=== PATIENT | female | born 1960 | race Native Hawaiian/Other Pacific Islander ===

== ENCOUNTER 2017-09-12 15:59 | Emergency (ER) | payer BC, OTHER ==
[~2017-09-12] VITALS: Ht 162.6 cm; Wt 72.0 kg
[~2017-09-12 15:59] MED LIST: ASPI81TA11 PO; IBUP600T26 PO; PERC5TAB12 PO; ROSU40 PO
[2017-09-12 16:36] VITALS: BP 198/102; PULSE 73; RESP 16; TEMP 98.3; O2SAT 96
--- NOTE | 2017-09-12 18:00 | PD ---
HPI Chief Complaint: Injury Time Seen by Provider: 17:57 Travel History International Travel<30 days: No Contact w/Intl Traveler<30days: No Traveled to known affect area: No History of Present Illness HPI Comes in complaining of left index finger pain near the base of the first phalanx. Patient states she was stirring rice when he somehow twisted her finger causing the pain. Patient applied ice but states this only made it cold. Denies doing anything else for this. Pain is worse with palpation and certain movement. Describes pain as a sharp stabbing pain that radiates proximally. Denies any numbness or tingling. Denies anything making it better. Patient reports history of white coat hypertension but does not take medication for it. Patient states she does not want any pain medication as she does not like taking medication. PFSH Past Medical History High Cholesterol: Yes Diminished Hearing: No Hypertension: Yes (white coat) Social History Alcohol Use: No Tobacco Use: Yes (1 PPD) Substance Use: No Allergies-Medications (Allergen,Severity, Reaction): Coded Allergies: No Known Allergies (Verified Adverse Reaction, Unknown, 09/12/17) Reported Meds & Prescriptions Reported Meds & Active Scripts Active Reported Aspirin 81 Mg Chew 81 Mg CHEW HS Crestor (Rosuvastatin Calcium) 20 Mg Tab 20 Mg PO HS Review of Systems General / Constitutional: No: Fever Eyes: No: Visual changes HENT: No: Headaches Cardiovascular: No: Chest Pain or Discomfort Respiratory: No: Shortness of Breath Gastrointestinal: No: Abdominal Pain Genitourinary: No: Dysuria Musculoskeletal: Positive: Pain Skin: No Rash Neurologic: No: Weakness Psychiatric: No: Depression Endocrine: No: Polydipsia Hematologic/Lymphatic: No: Easy Bruising Physical Exam Narrative GENERAL: Well-developed, overly nourished, in no acute distress, and non-ill appearing. SKIN: Focused skin assessment warm and dry. HEAD: Atraumatic. Normocephalic. EYES: Pupils equal and round. EOMI. No scleral icterus. No injection or drainage. ENT: No nasal bleeding or discharge. Mucous membranes pink and moist. NECK: Trachea midline. Supple. No nuclear rigidity. CARDIOVASCULAR: Capillary refill less than 2 seconds. RESPIRATORY: No accessory muscle use. No respiratory distress. MUSCULOSKELETAL: No obvious deformities. No clubbing. No cyanosis. No edema. Decreased range of motion left finger second digit secondary to pain and swelling. Patient reports tenderness to palpation of the proximal phalanx of the left hand second digit. There is ecchymosis and soft tissue swelling noted. There is no crepitus. Patient has decreased range of motion of flexion secondary to the pain. Has full range of motion with extension, abduction, adduction, and opposition. Neurovascularly intact. NEUROLOGICAL: Awake and alert. No obvious cranial nerve deficits. Motor grossly within normal limits. Normal speech. PSYCHIATRIC: Appropriate mood and affect; insight and judgment normal. Data Data Last Documented VS Vital Signs Date Time Temp Pulse Resp B/P (MAP) Pulse Ox O2 Delivery O2 Flow Rate FiO2 09/12/17 19:04 09/12/17 16:36 98.3 73 16 96 Orders Orders Finger ([id number]) (09/12/17 ) Ed Discharge Order (09/12/17 18:41) Splint Or Brace Apply/Monitor (09/12/17 18:41) MDM Medical Decision Making Medical Screen Exam Complete: Yes Emergency Medical Condition: Yes Interpretation(s) Last Impressions Finger X-Ray 09/12/17 0000 Signed Impressions: Service Date/Time: September 18:00 - CONCLUSION: Suspected nondisplaced volar plate fracture of the pointer finger proximal interphalangeal joint. Tucker Ward MD Differential Diagnosis Fracture, sprain, contusion, dislocation Narrative Course The patient sustained a fracture. The distal extremity appears neurovascularly intact, without evidence of neurovascular injury nor compartment syndrome. Tendon exam also was intact. The effected limb was splinted. The patient was discharged with fracture and splint care instructions and given warnings for vascular compromise. The patient is to follow up with hand surgeon. The patient agrees with plan. The patient has a prior history of reported whitecoat hypertension. The patient has no symptoms as well. The patient denied headache, changes in vision, nausea , vomiting, dizziness, weakness or loss of sensation. The patient denied and chest, back or abdominal pain. The patient also denied any shortness of breath, dyspnea on exertion, orthopnea or PND. The patient denies any edema to extremities. The patients blood pressures at discharge were at an acceptable level. I discussed with the patient to follow up with a primary care physician for continued outpatient evaluation and potential starting of blood pressure medication at that time found to be warranted. Return warnings were given to the patient and the patient agreed with plan of care. Patient states she does not want any medication to go home. Patient in no obvious distress upon re-evaluation. All pertinentRadiology result (s) discussed with patient/family. Any questions/concerns in reference to patient diagnosis/condition discussed and clarified prior to patient's discharge. Reinforced sheer importance of close follow up with patient's primary physician or primary care clinic and hand surgeon. Instructed patient to return to ED immediately, if symptoms return/worsen. Patient showed understanding of above instructions. Further instructions and recommendations were detailed in discharge paperwork. Patient ambulated without difficulty out of ED at discharge. Diagnosis Primary Impression: Finger fracture, left Qualified Codes: S62.641A - Nondisplaced fracture of proximal phalanx of left index finger, initial encounter for closed fracture Referrals: Ric Lazcano MD 1 week Patient Instructions: Finger Fracture (ED), General Instructions, Splint Care ( ED) Additional Instructions: Follow-up with hand surgeon next week for reevaluation of her finger fracture. Follow-up with your primary care physician regarding elevated blood pressure noted here today. Use [id number] Tylenol and/or ibuprofen as needed for pain. Follow instructions on the packaging. Apply ice to affected area) as needed for pain and swelling. Elevated affected finger to decrease pain and swelling. Return to the emergency department if symptoms get worse. Disposition: 01 DISCHARGE HOME Condition: Stable [place] Sep 12, 2017 18:00
[2017-09-12] MEDS ORDERED: ROSU20 PO (18:02)
[2017-09-12] MEDS ORDERED: ASPI-516 CHEW (18:02)
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
[2017-09-12 19:03] VITALS: BP 184/96
== END 2017-09-12 19:14 | disposition home or self-care (01) ==
LOC: PHED 15:59 → PHEFT 19:14
DX: S62.641A Nondisplaced fracture of proximal phalanx of left index finger, initial encounter for closed fracture (principal); E78.00 Pure hypercholesterolemia, unspecified; F17.200 Nicotine dependence, unspecified, uncomplicated; X50.1XXA Overexertion from prolonged static or awkward postures, initial encounter; Y93.G3 Activity, cooking and baking
CPT/HCPCS: 29130; 73140

== ENCOUNTER 2017-12-28 21:12 | Emergency (ER) | payer OTHER, BC ==
[~2017-12-28] VITALS: Ht 162.6 cm; Wt 72.8 kg
[~2017-12-28 21:12] MED LIST changes: +ASPI-516 CHEW; -ASPI81TA11 PO; -IBUP600T26 PO; -PERC5TAB12 PO; +ROSU20 PO; -ROSU40 PO
[2017-12-28 21:13] VITALS: BP 211/85; PULSE 72; RESP 18; TEMP 98.1; O2SAT 97
[2017-12-28 21:47] VITALS: BP 175/82; PULSE 61; RESP 20; O2SAT 98
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
[2017-12-28] MEDS ORDERED: MORPHINE SULFATE 4 MG/ML INJ IV PUSH ONE (23:00)
[2017-12-28] MEDS ORDERED: ONDANSETRON HCL 4 MG/2 ML VIAL IVP ONE (23:00)
[2017-12-28] MEDS ORDERED: KETOROLAC TROMETHAMINE 60 MG/2 ML (IM) VIAL IVP ONE (23:00)
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
[2017-12-28 23:45] VITALS: RESP 18
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
[2017-12-29] MEDS ORDERED: TRAM50TA PO (00:59)
[2017-12-29] MEDS ORDERED: IBUP-232 PO (01:01)
[2017-12-29 01:18] VITALS: BP 180/91
== END 2017-12-29 01:15 | disposition home or self-care (01) ==
LOC: PHED 21:12
DX: S16.1XXA Strain of muscle, fascia and tendon at neck level, initial encounter (principal); S40.011A Contusion of right shoulder, initial encounter; R11.0 Nausea; I10 Essential (primary) hypertension; V43.52XA Car driver injured in collision with other type car in traffic accident, initial encounter; E78.00 Pure hypercholesterolemia, unspecified; Z72.0 Tobacco use; Z79.899 Other long term (current) drug therapy
CPT/HCPCS: 70450; 72125; 73030; 96374; 96375; 99284; J1885; J2270; J2405